=== PATIENT | male | born 1955 | race Caucasian/White ===

== ENCOUNTER 2024-10-20 12:58 | Emergency (ER) | payer MEDICARE ==
[2024-10-20] MEDS ORDERED: Naloxone 0.4 MG/ML SDV IVPUSH PRN (13:29)
[2024-10-20] MEDS: Ketorolac 60 MG/2 ML SDV IVPUSH STA (13:42)
[2024-10-20] MEDS: fentaNYL 100 MCG/2 ML SDV IVPUSH STA (13:42)
[2024-10-20] MEDS: Ondansetron 4 MG/2 ML SDV IVPUSH ONE (13:42)
[2024-10-20 13:43] LABS: BASOPHILS ABSOLUTE AUTO 0.1 K/mm3 (0.0-0.2); BASOPHILS PERCENT AUTO 0.8 % (0.0-1.0); EOSINOPHILS ABSOLUTE AUTO 0.5 K/mm3 (0.0-0.4); EOSINOPHILS PERCENT AUTO 6.9 % (0.0-6.0); IMMATURE GRAN ABSOLUTE AUTO 0.03 K/mm3 (0.00-0.05); IMMATURE GRAN PERCENT AUTO 0.4 % (0.0-0.4); LYMPHOCYTES ABSOLUTE AUTO 1.3 K/mm3 (1.0-4.8); LYMPHOCYTES PERCENT AUTO 16.9 % (24.0-44.0); MEAN PLATELET VOLUME 11.3 fl (9.4-12.4); MONOCYTES ABSOLUTE AUTO 1.0 K/mm3 (0.0-0.8); MONOCYTES PERCENT AUTO 13.2 % (0.0-8.0); NEUTROPHILS ABSOLUTE AUTO 4.7 K/mm3 (1.8-7.7); NEUTROPHILS PERCENT AUTO 61.8 % (41.0-71.0); NRBC ABSOLUTE 0.00 (0.00-0.02); NRBC PERCENT 0.0 % (0.0-0.2); PLATELET COUNT,PLT 133 K/mm3 (150-400); RED BLOOD CELL COUNT 4.68 M/mm3 (4.52-5.90); WHITE BLOOD CELL COUNT,WBC 7.63 K/mm3 (3.9-11.3)
[2024-10-20 14:01] LABS: A/G RATIO 1.3 (1-2); ALANINE AMINOTRANSFERASE,ALT 28.0 U/L (16-63); ASPARTATE AMNIOTRANSFERASE,AST 15.0 U/L (15-37); BILIRUBIN TOTAL 0.3 mg/dL (0.2-1.0); BLOOD UREA NITROGEN,BUN 23.0 mg/dL (7-18); CARBON DIOXIDE,CO2 24.0 mEq/L (21-32); CHLORIDE,CL 106.0 mEq/L (98-107); CREATINE KINASE,CK 39.0 U/L (39-308); CREATININE 1.1 mg/dL (0.7-1.3); EST CRCL DRUG DOSING (CG) 71.63 mL/min; ESTIMATED GFR 73.0 mL/min (>60); GLUCOSE RANDOM 114.0 mg/dL (70-99); POTASSIUM,K 4.0 mEq/L (3.5-5.1); PROTEIN TOTAL,TP 6.8 g/dl (6.4-8.2); SODIUM,NA 141.0 mEq/L (136-145)
[2024-10-20 16:26] LABS: APPEARANCE,URINE CLEAR (Clear); GLUCOSE,URINE NEGATIVE (Negative); OCCULT BLOOD,URINE 2+ (Negative)
[2024-10-20 16:55] LABS: EPITHELIAL CELLS,URINE 0-5 /hpf (0-5)
== END 2024-10-20 17:10 | disposition home or self-care (01) ==
LOC: JD.ED 12:58
DX: N13.2 Hydronephrosis with renal and ureteral calculous obstruction (principal)
CPT/HCPCS: 36415; 74176; 74176-26; 80053; 81001; 82550; 83690; 83735; 85025; 96361; 96374; 96375; 99284; 99284-25; J1171; J1885; J2405; J3010; J7030